=== PATIENT | female | born 1970 | race Caucasian/White ===

== ENCOUNTER → 2019-12-29 | Outpatient (CLI) | payer BC ==
[~2019-12-29] VITALS: Ht 160 cm; Wt 66.2 kg
[~2019-12-29] MED LIST: ALLERGY RELIEF180 MG PO; AMBIEN 10 MG TA10 MG PO; BACLOFEN 10MG T10 MG PO; BIOTIN5000 MCG PO; CLONAZEPAM 0.50.5 M1 PO; LISINOPRIL20 MG PO; LOPRESSOR50 MG PO; NEURONTIN100 MG PO; OMEPRAZOLE 20 M20 M1 PO; PROTONIX40 M2 PO; TRAZODONE HCL100 MG PO
--- NOTE | ~2019-12-29 | HPC ---
[facility] [place] [address] PAIN MANAGEMENT CONSULTATION Name: LUCAS RODRIGUEZ Room #: REG MAHAD Pal.#: [id number] Admission: 12/29/19 Attend Phys: Dariel Oropeza MD Discharge: Date of : 66 Report #: [id number] THIS REPORT FOR: cc: Everett Aragon III, III,Dariel Farrell MD ~ CC: Everett Oropeza DATE OF SERVICE: 12/29/2019 CHIEF COMPLAINT: Low back pain. The patient is here today with her significant other. She is a pleasant 49-year-old with cerebral palsy. She was sent to us by Dr. Gay to evaluate lumbar spondylosis. Consideration for pain generators in his report were sacroiliac joint or facet. The patient reports to us she has had ongoing and persistent pain in her low back. The pain is 8 on an average day and 10, its worst. The pain is far and away most severe when she is standing. It radiates across her lower back and into her hips and when it is severe, it takes her breath away. She describes it as stabbing and cramping. Pain drawing shows pain across the lumbosacral segment. MEDICATIONS: Zolpidem, trazodone, gabapentin, lisinopril, omeprazole, metoprolol, clonazepam, baclofen, fexofenadine, pantoprazole, and vitamins. ALLERGIES: CRESTOR AND ZETIA. PAST MEDICAL HISTORY: She has cerebral palsy. She has lots of dystonia. She was seen by Dr. Francis and underwent an anterior cervical diskectomy and fusion in 2012. This was followed by bilateral ganglionectomy [place] [address] Gay and then placement of a deep brain stimulator to help with dystonia. She says it has been helpful. She continues to complain of weakness, however, and baseline chronic neck pain. She has a history of asthma. She has been treated for supraventricular tachycardia. She had a transient ischemic attack or stroke as she describes it, but has no residual. It occurred sometime in 2019 around January. She is not on a blood thinner. REVIEW OF SYSTEMS: Positive for fatigue, weakness, headaches, blurred vision, loss of hearing on one side with ringing sore throat, dyspnea on exertion, history of SVT and insomnia. [facility] [address] [place] [address] PAIN MANAGEMENT CONSULTATION Name: LUCAS RODRIGUEZ Room #: REG MAHAD Breanne#: [id number] Admission: 12/29/19 Attend Phys: Dariel Oropeza MD Discharge: Date of : 66 Report #: [id number] PHYSICAL EXAMINATION: GENERAL: She is a pleasant female, wearing a mask due to COVID restrictions. VITAL SIGNS: Her blood pressure 101/69, heart rate 88, respirations 20. Her O2 sat is 98. She is 5 feet 3 inches, 66 kilograms and gives her a BMI of 25.9. She has dystonic movements throughout. She is able to move independently from sitting to standing position, but appears slightly unstable. MUSCULOSKELETAL: Examination of the low back reveals tenderness across the lumbosacral segment and tenderness overlying the facet joints. Pain is increased with back extension. Straight leg raising is negative. There is no tenderness of the sacroiliac joints today. IMPRESSION: Lumbar spondylosis. I think most of her pain is coming from the facet joints. She does not have x-rays. I have sent her off for a lumbar spine series and we will evaluate that. I have scheduled her tentatively for bilateral facet injections with triamcinolone at L3-L4, L4-L5 and L5-S1. This may provide symptomatic relief give us some indication of this pain generator. She may ultimately be a candidate for radiofrequency ablation. She had some questions today about her cervical fusion. I would certainly refer her back to Dr. Francis or Dr. Gay. She is concerned that she may have sudden paralysis. Without trauma, I do not believe it is likely, but again, I would defer to their judgment. I do not have her x-rays available to review today. By: [id number] Dariel Oropeza MD /nt
[2019-12-29 14:14] VITALS: BP 101/69
--- NOTE | 2019-12-29 15:35 | NUR ---
Pain Clinic Assessment: 1. History of Osteoarthritis: NECK BACK History of Rheumatoid Arthritis: NO 2. Height: 5 ft. 3 in. 160.0 cm. Weight: 146.0 lb. oz. 66.225 kg. Patient's BMI: 25.9 3. Vital Signs: BP: 101/69 Pulse: 88 Resp: 20 Temp: 02 Sat: 98 ECG Mon: 4. Pain Intensity: 0 5. Fall Risk: Dizziness: N Needs help standing or walking: Y Fallen in the last 3 months: Y Fall risk comments: 6. Patient on Blood Thinner: None 7. History of Hypertension: Y 8. Opioid Therapy greater than 6 weeks: N Opiate Contract Signed: 9. Risk Assessment Tool Provided: 6-MOD RISK 10. Functional Assessment Tool: 11. Recreational Drug Use: Drug Type: Tobacco Use: Unknown if Ever Smoked Tobacco Type: Amount or Packs/day: How Many Years: Alcohol Use: No Frequency: Quant:
== END | disposition home or self-care (01) ==
LOC: PAIN 06:56
PROVIDERS: ATTEND Anesthesiology Pain Medicine
DX: M54.5 Low back pain (principal); M47.816 Spondylosis without myelopathy or radiculopathy, lumbar region; Z88.8 Allergy status to other drugs, medicaments and biological substances; Z79.899 Other long term (current) drug therapy; Z90.710 Acquired absence of both cervix and uterus

== ENCOUNTER → 2020-03-05 | Outpatient (CLI) | payer BC, OTHER ==
[~2020-03-05] VITALS: Ht 160 cm; Wt 66.2 kg
[~2020-03-05] MED LIST changes: +ASPIRIN325 PO
[2020-03-05 13:43] VITALS: BP 116/84
--- NOTE | 2020-03-05 13:55 | NUR ---
Pain Clinic Assessment: 1. History of Osteoarthritis: NECK BACK History of Rheumatoid Arthritis: NO 2. Height: 5 ft. 3 in. 160.0 cm. Weight: 146.0 lb. oz. 66.225 kg. Patient's BMI: 25.9 3. Vital Signs: BP: 116/84 Pulse: 86 Resp: 14 Temp: 02 Sat: 100 ECG Mon: 4. Pain Intensity: 10 5. Fall Risk: Dizziness: N Needs help standing or walking: N Fallen in the last 3 months: N Fall risk comments: 6. Patient on Blood Thinner: None 7. History of Hypertension: Y 8. Opioid Therapy greater than 6 weeks: N Opiate Contract Signed: 9. Risk Assessment Tool Provided: 6-MOD RISK 10. Functional Assessment Tool: 11. Recreational Drug Use: Never Drug Type: Tobacco Use: Never Smoker Tobacco Type: Amount or Packs/day: How Many Years: Alcohol Use: Past use Frequency: Quant:
== END | disposition home or self-care (01) ==
LOC: PAIN 01-19 06:57
PROVIDERS: ATTEND Anesthesiology Pain Medicine
DX: M47.816 Spondylosis without myelopathy or radiculopathy, lumbar region (principal); I10 Essential (primary) hypertension; Z98.890 Other specified postprocedural states; Z79.899 Other long term (current) drug therapy; Z88.8 Allergy status to other drugs, medicaments and biological substances